=== PATIENT | male | born 1965 | race Caucasian/White ===

== ENCOUNTER → 2019-09-12 | Day surgery (SDC) | payer BC ==
[2019-09-12 08:03] VITALS: TEMP 97.7; BMI 29.9
[2019-09-12 09:10] VITALS: BP 128/70; PULSE 68
--- NOTE | 2019-09-13 14:03 | PATH ---
Surgical Pathology Report Patient Name: JOEL DIAZ [facility]. Rec. #: [id number] /Age/Gender: 1965 (Age: 54) / M Account: [id number] Location: U-ENDOSCOPY Taken: 09/12/2019 Received: 09/12/2019 Reported: 09/13/2019 Physicians: Mercedes Mcmanus M.D. Specimen(s) Received A: STOMACH B: GE JUNCTION C: SIGMOID POLYP Clinical History Reflux, colon surveillance Postoperative diagnosis: Normal EGD, colon polyp, diverticulosis Final Diagnosis A. STOMACH, BIOPSY: GASTRIC BODY MUCOSA WITH MILD CHRONIC GASTRITIS. IMMUNOHISTOCHEMICAL STAIN FOR H. PYLORI IS NEGATIVE. B. GE JUNCTION, BIOPSY: SQUAMOCOLUMNAR MUCOSA WITH MILD CHRONIC INFLAMMATION AND CHANGES OF MILD TO MODERATE REFLUX ESOPHAGITIS. NO INTESTINAL METAPLASIA OR DYSPLASIA IDENTIFIED. C. SIGMOID COLON, POLYP, POLYPECTOMY: TUBULAR ADENOMA(S). Positive and negative controls (internal if applicable) show appropriate results. Electronically Signed Conchis Hayes M.D. Gross Description A. Received in formalin, labeled "biopsy stomach" are 4 johnson, irregular portions of soft tissue ranging from 0.2-0.5 cm. in greatest dimension. The specimens are submitted in toto in one cassette. B. Received in formalin, labeled "biopsy GE junction" are 2 johnson, irregular portions of soft tissue averaging 0.3 cm. in greatest dimension. The specimens are submitted in toto in one cassette. C. Received in formalin, labeled "sigmoid polyp" are 2 johnson, irregular portions of soft tissue averaging 0.3 cm. in greatest dimension. The specimens are submitted in toto in one cassette. 09/12/[address] [facility]09/12/2019
== END | disposition home or self-care (01) ==
LOC: JASU-ENDO 07:34
PROVIDERS: ATTEND Internal Medicine Gastroenterology
PROC: 0DB48ZX Excision of Esophagogastric Junction, Via Natural or Artificial Opening Endoscopic, Diagnostic (ICD-10-PCS; 2019-09-12)
PROC: 0DB68ZX Excision of Stomach, Via Natural or Artificial Opening Endoscopic, Diagnostic (ICD-10-PCS; 2019-09-12)
PROC: 0DBN8ZX Excision of Sigmoid Colon, Via Natural or Artificial Opening Endoscopic, Diagnostic (ICD-10-PCS; principal; 2019-09-12 10:45)
DX: Z86.010 Personal history of colon polyps (principal); D12.5 Benign neoplasm of sigmoid colon; K57.30 Diverticulosis of large intestine without perforation or abscess without bleeding; K21.9 Gastro-esophageal reflux disease without esophagitis; K29.50 Unspecified chronic gastritis without bleeding; K21.0 Gastro-esophageal reflux disease with esophagitis

== ENCOUNTER → 2022-03-26 | Day surgery (SDC) | payer BC ==
[2022-03-25 12:11] VITALS: BMI 31.9
[2022-03-26 11:42] VITALS: RESP 16; TEMP 97.6
[2022-03-26 11:57] VITALS: BP 133/91; PULSE 74
== END | disposition home or self-care (01) ==
LOC: FASU-ENDO 09:46
PROVIDERS: ATTEND Internal Medicine Gastroenterology
PROC: 0DJD8ZZ Inspection of Lower Intestinal Tract, Via Natural or Artificial Opening Endoscopic (ICD-10-PCS; principal; 2022-03-26 11:10)
DX: Z12.11 Encounter for screening for malignant neoplasm of colon (principal); Z86.010 Personal history of colon polyps; K57.30 Diverticulosis of large intestine without perforation or abscess without bleeding; K64.1 Second degree hemorrhoids
CPT/HCPCS: 88305-TC; 88342-TC

== ENCOUNTER 2025-01-15 11:14 | Day surgery (SDC) | payer BC ==
[2025-01-10 14:46] VITALS: BMI 33.2
[2025-01-15 13:12] VITALS: PULSE 78; RESP 18; TEMP 97.6
[2025-01-15 13:25] VITALS: BP 130/70
== END 2025-01-15 13:25 | disposition home or self-care (01) ==
LOC: FASU-ENDO 11:14
PROVIDERS: ATTEND Internal Medicine Gastroenterology
PROC: 0DJD8ZZ Inspection of Lower Intestinal Tract, Via Natural or Artificial Opening Endoscopic (ICD-10-PCS; principal; 2025-01-15 12:51)
DX: Z12.11 Encounter for screening for malignant neoplasm of colon (principal); Z86.0109 Personal history of other colon polyps